=== PATIENT | female | born 1945 | race Caucasian/White ===

== ENCOUNTER 2018-06-01 06:49 | Day surgery (SDC) | payer BC, MEDICARE ==
[2018-06-01] VITALS (20 sets, daily range): BP systolic 120–146; BP diastolic 48–75
[~2018-06-01] VITALS: Ht 165.1 cm; Wt 60.3 kg
[2018-06-01] MEDS ORDERED: normal saline 1000ml 1,000 ML IV SCH (07:10)
[2018-06-01] MEDS ORDERED: ATOR40TA PO (07:33)
[2018-06-01] MEDS ORDERED: INSU100V3 SQ (07:33)
[2018-06-01] MEDS ORDERED: LANTUS SQ (07:33)
[2018-06-01] MEDS ORDERED: MIDAZolam 5mg/ml 2ml vial IV ONE (07:55)
[2018-06-01] MEDS ORDERED: fentaNYL/PF 50MCG/1 ML 2ML syringe IV ONE (07:55)
[2018-06-01 08:07] LABS: ANION GAP 9 (8-16); BLOOD UREA NITROGEN 19 MG/DL (7-18); BUN/CREATININE RATIO 17.4 (6.6-38.0); CALCIUM 9.2 MG/DL (8.5-10.1); CHLORIDE 102 MMOL/L (99-107); CREATININE 1.09 MG/DL (0.40-0.90); GLUCOSE 266 MG/DL (70-104); SODIUM 140 MMOL/L (135-145); TOTAL CARBON DIOXIDE 28.6 MMOL/L (24-32); eGFR 49 ML/MIN
[2018-06-01 08:11] LABS: PROTHROMBIN TIME 10.1 SECONDS (9.0-12.0)
[2018-06-01 08:43] LABS: BASOPHILS % (AUTO) 0.5 % (0-1); EOSINOPHILS # (AUTO) 0.1 X10'3 (0-0.9); EOSINOPHILS % (AUTO) 3.9 % (0-6); HEMATOCRIT 37.5 % (35.0-45.0); HEMOGLOBIN 12.7 g/dl (12.0-16.0); LYMPHOCYTES # (AUTO) 1.1 X10'3 (1.1-4.8); MEAN CORPUSCULAR HEMOGLOBIN 32.2 PG (27.0-31.0); MEAN CORPUSCULAR HGB CONC 33.8 % (33.0-36.5); MEAN CORPUSCULAR VOLUME 95.2 FL (78-98); MONOCYTES # (AUTO) 0.2 X10'3 (0-0.9); MONOCYTES % (AUTO) 6.7 % (2-12); NEUTROPHILS % (AUTO) 56.9 % (42-75); PLATELET COUNT 251 X10'3 (140-440); RED BLOOD COUNT 3.94 X10'6 (4.20-5.60); RED CELL DISTRIBUTION WIDTH 13.7 % (11.5-14.5); WHITE BLOOD COUNT 3.5 X10'3 (4.5-11.0)
[2018-06-01] MEDS ORDERED: HYDROcodone/acetaminophen 5mg/325mg tablet PO PRN ×2 (09:50)
== END 2018-06-01 12:55 | disposition home or self-care (01) ==
LOC: SSTAY O 06:49
PROVIDERS: ATTEND Radiology Diagnostic Radiology
DX: R74.8 Abnormal levels of other serum enzymes (principal); E78.5 Hyperlipidemia, unspecified; E10.9 Type 1 diabetes mellitus without complications; Z79.4 Long term (current) use of insulin; Z98.41 Cataract extraction status, right eye; Z98.42 Cataract extraction status, left eye; Z98.890 Other specified postprocedural states; Z79.899 Other long term (current) drug therapy
CPT/HCPCS: 36415; 47000; 76942; 80048; 82948; 85025; 85610; J2250; J3010; J7030; 99152

== ENCOUNTER 2018-12-08 02:26 | Outpatient (CLI) | payer BC ==
[~2018-12-08 02:26] MED LIST: ATOR40TA PO; INSU100V3 SQ; LANTUS SQ
== END 2018-12-08 23:59 | disposition home or self-care (01) ==
LOC: DIABETIC 02:26
PROVIDERS: ATTEND Specialist
DX: E11.65 Type 2 diabetes mellitus with hyperglycemia (principal); Z79.4 Long term (current) use of insulin; Z79.84 Long term (current) use of oral hypoglycemic drugs; Z79.899 Other long term (current) drug therapy
CPT/HCPCS: G0108

== ENCOUNTER 2019-01-13 02:16 | Outpatient (CLI) | payer BC | END 2019-01-13 23:59 | disposition home or self-care (01) | LOC: DIABETIC 02:16 | PROVIDERS: ATTEND Specialist | DX: E10.65 Type 1 diabetes mellitus with hyperglycemia (principal); Z79.4 Long term (current) use of insulin; Z79.84 Long term (current) use of oral hypoglycemic drugs; Z79.899 Other long term (current) drug therapy | CPT/HCPCS: G0108 ==

== ENCOUNTER 2019-03-22 17:58 | Emergency (ER) | payer BC ==
[~2019-03-22] VITALS: Ht 162.6 cm; Wt 60.0 kg
[2019-03-22 18:08] VITALS: BP 147/110
[2019-03-22] MEDS ORDERED: LIDOcaine/epinephrine TOPICAL 5 ML BTL TOP ONE (19:25)
[2019-03-22] MEDS ORDERED: TETanus/Pertussis (Acell)/Diphther VAC/PF (Tdap-Adult) 0.5ml syringe IMVAC ONE (19:25)
[2019-03-22] MEDS ORDERED: CEPH500C5 PO (20:14)
== END 2019-03-22 20:36 | disposition home or self-care (01) ==
LOC: ER 17:59
DX: S60.552A Superficial foreign body of left hand, initial encounter (principal); W25.XXXA Contact with sharp glass, initial encounter; Y93.89 Activity, other specified; Y92.9 Unspecified place or not applicable; Y99.9 Unspecified external cause status
CPT/HCPCS: 10120; 12001; 90471; 99284

== ENCOUNTER 2023-12-09 07:00 | Day surgery (SDC) | payer MEDICARE, OTHER ==
[2023-12-08 14:52] LABS: EOSINOPHILS # (AUTO) 0.1 X10'3 (0-0.9); EOSINOPHILS % (AUTO) 2.5 % (0-6); HEMATOCRIT 30.8 % (35.0-45.0); HEMOGLOBIN 10.5 g/dl (12.0-16.0); LYMPHOCYTES # (AUTO) 1.2 X10'3 (1.1-4.8); LYMPHOCYTES % (AUTO) 30.5 % (21-51); MEAN CORPUSCULAR HEMOGLOBIN 32.1 PG (27.0-31.0); MEAN CORPUSCULAR HGB CONC 34.2 g/dL (33.0-36.5); MEAN PLATELET VOLUME 8.2 FL (7.4-10.4); MONOCYTES # (AUTO) 0.2 X10'3 (0-0.9); NEUTROPHILS # (AUTO) 2.3 X10'3 (1.8-7.7); PLATELET COUNT 219 X10'3 (140-440); RED BLOOD COUNT 3.27 X10'6 (4.20-5.60); RED CELL DISTRIBUTION WIDTH 12.9 % (11.5-14.5); WHITE BLOOD COUNT 3.8 X10'3 (4.5-11.0)
[2023-12-08 15:01] LABS: ALBUMIN 3.5 G/DL (3.4-5.0); ANION GAP 6 (8-16); BLOOD UREA NITROGEN 10 MG/DL (7-18); BUN/CREATININE RATIO 9.5 (10.0-20.0); CHLORIDE 101 MMOL/L (99-107); CREATININE 1.05 MG/DL (0.40-0.90); GLUCOSE 395 MG/DL (70-104); POTASSIUM 4.5 MMOL/L (3.5-5.1); SODIUM 135 MMOL/L (135-145); TOTAL CARBON DIOXIDE 28.3 MMOL/L (24-32); eGFR 50 ML/MIN
[2023-12-08 15:03] LABS: APTT 25 SECONDS (22-32); PROTHROMBIN TIME 11.1 SECONDS (9.0-12.0)
[2023-12-09] VITALS (12 sets, daily range): BP systolic 139–163; BP diastolic 39–63; PULSE 52–73; RESP 14–16; TEMP 98.2; O2SAT 96–100
[~2023-12-09] VITALS: Ht 162.6 cm; Wt 49.7 kg
[2023-12-09] MEDS: diphenhydrAMINE 25mg capsule PO PRN (08:49)
[2023-12-09] MEDS: LORazepam 0.5 MG tablet PO PRN (08:49)
[2023-12-09] MEDS: normal saline 1,000 ML IV SCH (08:50)
[2023-12-09] MEDS ORDERED: LIDOcaine 1% (10mg/ml) 2ml vial ONE ×2 (10:08→10:17)
[2023-12-09] MEDS ORDERED: verapamil 2.5 mg/ml inj IV ONE (10:08)
[2023-12-09] MEDS ORDERED: fentaNYL/PF 50MCG/1 ML 2ML syringe ONE (10:08)
[2023-12-09] MEDS ORDERED: iohexol 350 MG/ML 50ML vial IV ONE (10:09)
[2023-12-09] MEDS ORDERED: nitroGLYCERIN 500mcg/5mL D5W 5 ML IV ONE (10:09)
[2023-12-09] MEDS ORDERED: heparin 1,000unit/ml 10ml vial 10 ML ONE (10:09)
[2023-12-09] MEDS ORDERED: midazolam 1 mg/ML 2ml injection ONE (10:09)
[2023-12-09] MEDS ORDERED: iohexol 350MG/ML 100ml bottle IV ONE ×2 (10:09→11:21)
[2023-12-09] MEDS ORDERED: heparin 25,000 UNIT/250ml bag 250 ML IV ONE (11:21)
[2023-12-09] MEDS ORDERED: heparin 1,000 UNITS/NS 500ml 500 ML ONE (11:30)
[2023-12-09] MEDS ORDERED: clopidogrel 300mg tablet ONE (11:52)
[2023-12-09] MEDS ORDERED: aspirin 81mg tab.chew ONE (11:53)
[2023-12-09] MEDS ORDERED: CLOP75TA34 PO (12:46)
[2023-12-09] MEDS ORDERED: ASPI-611 PO (12:46)
[2023-12-09 13:05] LABS: ISTAT HGB ART 9.5 g/dl (12.0-16.0); ISTAT Hct ART 28 %PCV (35-45); ISTAT O2 SATURATION ARTERIAL 93 % (95-98); ISTAT SOURCE ART
[2023-12-10] MEDS ORDERED: aspirin 81mg, enteric-coated 1 TAB TABLET.DR PO SCH (08:00)
[2023-12-10] MEDS ORDERED: clopidogrel 75mg tablet PO SCH (08:00)
== END 2023-12-09 18:25 | disposition home or self-care (01) ==
LOC: SSTAY O 07:00
PROVIDERS: ATTEND Internal Medicine Cardiovascular Disease
DX: I35.0 Nonrheumatic aortic (valve) stenosis (principal); I25.10 Atherosclerotic heart disease of native coronary artery without angina pectoris; E10.9 Type 1 diabetes mellitus without complications; E78.5 Hyperlipidemia, unspecified; Z79.899 Other long term (current) drug therapy; Z96.642 Presence of left artificial hip joint; Z83.3 Family history of diabetes mellitus; Z82.49 Family history of ischemic heart disease and other diseases of the circulatory system; Z80.9 Family history of malignant neoplasm, unspecified
CPT/HCPCS: 36415; 76937; 80048; 82803; 82948; 85014; 85025; 85347; 85610; 85730; 93005; 93460; 99152; 99153; A6258; A6402; C1725; C1751; C1769; C1874; C1894; C9600; J1644; J2001; J2250; J3010; J3490; J7030; Q0163; Q9967; Z7610

== ENCOUNTER 2024-04-05 22:10 | Inpatient (IN) | payer MEDICARE, OTHER ==
[~2024-04-05] VITALS: Ht 160 cm; Wt 51.4 kg
[~2024-04-05 22:10] MED LIST changes: +ASPI-611 PO; +CLOP75TA34 PO
[2024-04-05 22:31] LABS: BASOPHILS # (AUTO) 0.1 X10'3 (0-0.2); BASOPHILS % (AUTO) 0.7 % (0-1); EOSINOPHILS # (AUTO) 0.1 X10'3 (0-0.9); EOSINOPHILS % (AUTO) 1.3 % (0-6); HEMATOCRIT 31.6 % (35.0-45.0); HEMOGLOBIN 10.2 g/dl (12.0-16.0); LYMPHOCYTES # (AUTO) 1.1 X10'3 (1.1-4.8); LYMPHOCYTES % (AUTO) 12.6 % (21-51); MEAN CORPUSCULAR HEMOGLOBIN 32.2 PG (27.0-31.0); MEAN CORPUSCULAR HGB CONC 32.3 g/dL (33.0-36.5); MEAN CORPUSCULAR VOLUME 99.8 FL (78-98); MEAN PLATELET VOLUME 9.7 FL (7.4-10.4); MONOCYTES # (AUTO) 0.3 X10'3 (0-0.9); MONOCYTES % (AUTO) 3.7 % (2-12); NEUTROPHILS # (AUTO) 7.2 X10'3 (1.8-7.7); NEUTROPHILS % (AUTO) 81.7 % (42-75); PLATELET COUNT 76 X10'3 (140-440); RED BLOOD COUNT 3.16 X10'6 (4.20-5.60); RED CELL DISTRIBUTION WIDTH 13.7 % (11.5-14.5); WHITE BLOOD COUNT 8.8 X10'3 (4.5-11.0)
[2024-04-05] MEDS: DOPamine 400mg/D5W 250ml 250 ML IV SCH (22:39)
[2024-04-05 23:08] LABS: ALBUMIN 3.4 G/DL (3.4-5.0); ALBUMIN/GLOBULIN RATIO 1.3 (1.1-1.5); ALKALINE PHOSPHATASE 398 IU/L (46-116); ANION GAP 27 (8-16); BILIRUBIN,TOTAL 1.3 MG/DL (0.1-1.0); BLOOD UREA NITROGEN 46 MG/DL (7-18); BUN/CREATININE RATIO 12.5 (10.0-20.0); CALCIUM 9.7 MG/DL (8.5-10.1); CHLORIDE 90 MMOL/L (99-107); CREATININE 3.68 MG/DL (0.40-0.90); MAGNESIUM 2.7 MG/DL (1.5-2.4); PRO BRAIN NATRIURETIC PEPTIDE 11308 PG/ML (0-450); SODIUM 128 MMOL/L (135-145); THYROID STIMULATING HORMONE 4.24 ulU/ml (0.34-4.50); TOTAL PROTEIN 6.1 G/DL (6.4-8.2); eCRCL 10 ML/MIN; eGFR 12 ML/MIN
[2024-04-05] MEDS: normal saline 1000ml 1,000 ML IV STA (23:12)
[2024-04-05 23:25] LABS: ALANINE AMINOTRANSFERASE 3154 U/L (12-78); ASPARTATE AMINO TRANSFERASE 4295 U/L (10-37)
[2024-04-05 23:29] LABS: GLUCOSE 592 MG/DL (70-104); POTASSIUM 6.9 MMOL/L (3.5-5.1); TOTAL CARBON DIOXIDE 11.2 MMOL/L (24-32)
[2024-04-05 23:44] LABS: APTT 27 SECONDS (22-32); INR 1.8 INR; PROTHROMBIN TIME 18.1 SECONDS (9.0-12.0)
[2024-04-05] MEDS ORDERED: SODIUM BICARB IV ONE (23:50)
[2024-04-05] MEDS ORDERED: NORMAL SALINE IV ONE (23:50)
[2024-04-05] MEDS ORDERED: PED IV ONE (23:50)
[2024-04-05] MEDS ORDERED: calcium gluconate inj. 1 GM in normal saline 100ml IV soln 40 ML IV ONE (23:50)
[2024-04-06] VITALS (58 sets, daily range): BP systolic 92–144; BP diastolic 35–67; PULSE 69–100; RESP 10–24; O2SAT 85–100
[2024-04-06 00:27] LABS: ABG BASE EXCESS -2.3 mmol/L (-2.0-3.0); ABG HCO3 19.6 mmol/L (21.0-28.0); ABG PCO2 (T) 24.2 mmHg (32.0-45.0); ABG PH (T) 7.526 (7.350-7.450); ABG PO2 (T) 147.5 mmHg (83.0-108.0); ALLEN'S TEST Modified; FCOHb 0.2 % (0.5-1.5); FMetHb 0.3 % (0.0-1.5); FO2Hb 97.5 % (94.0-98.0); TOTAL HEMOGLOBIN 9.1 G/dl (12.0-16.0)
[2024-04-06] MEDS: albuterol 2.5 MG/3 ML nebule CONTNEB PRN (00:30)
[2024-04-06] MEDS: insulin regular, human 10 units/0.1 ml syringe IV ONE (00:37)
[2024-04-06] MEDS: Insulin Reg/NS 100units/100mL 100 ML IV SCH ×3 (00:38→09:41)
[2024-04-06] MEDS: sodium bicarbonate (8.4%) 1 mEq/ml syringe IV ONE (00:51)
[2024-04-06] MEDS: sodium bicarbonate (8.4%) 1 mEq/ml syringe IV STA (00:59)
[2024-04-06 01:00] LABS: BASOPHILS % (AUTO) 0.3 % (0-1); EOSINOPHILS # (AUTO) 0.1 X10'3 (0-0.9); EOSINOPHILS % (AUTO) 0.8 % (0-6); LYMPHOCYTES # (AUTO) 0.8 X10'3 (1.1-4.8); MEAN CORPUSCULAR HEMOGLOBIN 32.4 PG (27.0-31.0); MEAN CORPUSCULAR HGB CONC 33.4 g/dL (33.0-36.5); MEAN CORPUSCULAR VOLUME 97.1 FL (78-98); MEAN PLATELET VOLUME 9.3 FL (7.4-10.4); MONOCYTES % (AUTO) 0.5 % (2-12); NEUTROPHILS % (AUTO) 86.4 % (42-75); PLATELET COUNT 61 X10'3 (140-440); RED BLOOD COUNT 2.47 X10'6 (4.20-5.60); RED CELL DISTRIBUTION WIDTH 13.1 % (11.5-14.5); WHITE BLOOD COUNT 6.9 X10'3 (4.5-11.0)
[2024-04-06] MEDS: normal saline 1000ml 1,000 ML IV STA (01:00)
[2024-04-06] MEDS: normal saline 1000ml 1,000 ML IV ONE (01:00)
[2024-04-06] MEDS: CALCIUM GLUC 1gm/50ml NACL,iso 50 ML IV ONE (01:00)
[2024-04-06] MEDS: atropine 0.1mg/ml 10ml syringe IV STA ×2 (01:03→01:22)
[2024-04-06] MEDS: atropine 1 MG/1 ML vial IV STA (01:03)
[2024-04-06 01:19] LABS: ALBUMIN 2.6 G/DL (3.4-5.0); ALBUMIN/GLOBULIN RATIO 1.2 (1.1-1.5); ALKALINE PHOSPHATASE 310 IU/L (46-116); ANION GAP 20 (8-16); BILIRUBIN,TOTAL 1.4 MG/DL (0.1-1.0); BLOOD UREA NITROGEN 44 MG/DL (7-18); BUN/CREATININE RATIO 13.5 (10.0-20.0); CHLORIDE 98 MMOL/L (99-107); CREATININE 3.26 MG/DL (0.40-0.90); POTASSIUM 5.3 MMOL/L (3.5-5.1); SODIUM 136 MMOL/L (135-145); TOTAL CARBON DIOXIDE 17.8 MMOL/L (24-32); TOTAL PROTEIN 4.7 G/DL (6.4-8.2); eCRCL 11 ML/MIN; eGFR 14 ML/MIN
[2024-04-06 01:32] LABS: BILIRUBIN,URINE NEGATIVE (Neg); CLARITY,URINE SLIGHTLY CLOUDY (Clear); COLOR,URINE YELLOW (Yellow); GLUCOSE, URINE >=1000 mg/dl (Neg); KETONES,URINE 15 mg/dl (Neg); LEUKOCYTE ESTERASE ,URINE NEGATIVE (Neg); NITRITES, URINE NEGATIVE (Neg); OCCULT BLOOD,URINE LARGE (Neg); PH,URINE 5.5 (4.8-8.0); PROTEIN,URINE 100 mg/dl (Neg); UROBILINOGEN,URINE 0.2 E.U/dL (0.2-1.0)
[2024-04-06 01:38] LABS: ALANINE AMINOTRANSFERASE 2733 U/L (12-78)
[2024-04-06 01:39] LABS: BACTERIA,URINE 2+ /HPF (Neg); SQUAMOUS EPITHELIAL CELL,UR FEW /LPF (FEW); UA COLLECTION TYPE FOLEY CATH
[2024-04-06 01:40] LABS: WBC,URINE 0-4 /HPF (0-4)
[2024-04-06 01:48] LABS: ASPARTATE AMINO TRANSFERASE 3878 U/L (10-37)
[2024-04-06 01:50] LABS: GLUCOSE 519 MG/DL (70-104)
[2024-04-06] MEDS ORDERED: potassium CL 20mEq in D5-1/2NS 1,000 ML IV PRN (03:30)
[2024-04-06] MEDS ORDERED: mag hydrox/Alum hydrox/simeth 30ml oral suspension PO PRN (03:30)
[2024-04-06] MEDS ORDERED: ondansetron/PF 4mg/2ml inj IV PRN (03:30)
[2024-04-06] MEDS ORDERED: Neutra Phos packet PO PRN (03:30)
[2024-04-06] MEDS ORDERED: sodium phosphate inj. 15 MMOL in dextrose 5%-water 250 ML IV PRN (03:30)
[2024-04-06] MEDS ORDERED: dextrose 50%-water 50ml dispensing syringe IV PRN (03:30)
[2024-04-06] MEDS ORDERED: potassium Cl 20 mEq SR tablet PO PRN ×4 (03:30)
[2024-04-06] MEDS ORDERED: normal saline 1000ml 1,000 ML IV SCH (03:30)
[2024-04-06] MEDS ORDERED: magnesium Cl slow-release 64mg tablet PO PRN (03:30)
[2024-04-06] MEDS ORDERED: magnesium hydroxide 30ml (MOM) UD suspension PO PRN (03:30)
[2024-04-06] MEDS ORDERED: acetaminophen 325mg tablet PO PRN (03:30)
[2024-04-06] MEDS ORDERED: magnesium sulf-water 2g/50mL 50 ML IV PRN (03:30)
[2024-04-06] MEDS ORDERED: sodium bicarbonate (8.4%) inj. 100 MEQ in dextrose 5% water 500ml 500 ML IV PRN (03:30)
[2024-04-06] MEDS ORDERED: sodium phosphate inj. 30 MMOL in dextrose 5%-water 250 ML IV PRN (03:30)
[2024-04-06] MEDS ORDERED: sodium bicarbonate (8.4%) inj. 50 MEQ in dextrose 5% water 500ml 250 ML IV PRN (03:30)
[2024-04-06] MEDS ORDERED: potassium Cl 40MEQ/1/2NS 520ml 520 ML IV PRN ×2 (03:30)
[2024-04-06] MEDS ORDERED: magnesium sulf-water 4G/100mL 100 ML IV PRN (03:30)
[2024-04-06 03:34] LABS: ALBUMIN 3.1 G/DL (3.4-5.0); ALBUMIN/GLOBULIN RATIO 1.3 (1.1-1.5); ALKALINE PHOSPHATASE 351 IU/L (46-116); ANION GAP 16 (8-16); BILIRUBIN,TOTAL 1.1 MG/DL (0.1-1.0); BLOOD UREA NITROGEN 46 MG/DL (7-18); BUN/CREATININE RATIO 14.6 (10.0-20.0); CALCIUM 9.7 MG/DL (8.5-10.1); CHLORIDE 98 MMOL/L (99-107); CREATININE 3.14 MG/DL (0.40-0.90); SODIUM 136 MMOL/L (135-145); TOTAL CARBON DIOXIDE 22.5 MMOL/L (24-32); TOTAL PROTEIN 5.5 G/DL (6.4-8.2); eCRCL 12 ML/MIN; eGFR 14 ML/MIN
[2024-04-06] MEDS: normal saline 1000ml 1,000 ML IV SCH ×2 (03:55→13:29)
[2024-04-06 04:01] LABS: MAGNESIUM 2.2 MG/DL (1.5-2.4); PHOSPHORUS 5.5 MG/DL (2.3-4.5)
[2024-04-06 04:02] LABS: ALANINE AMINOTRANSFERASE 3221 U/L (12-78); ASPARTATE AMINO TRANSFERASE 5029 U/L (10-37)
[2024-04-06] MEDS: PERFLUTREN PROTEIN-A MICROSPHR (Optison) 0.22 MG/ML 3ML VIAL IV ONE (05:00)
[2024-04-06] MEDS ORDERED: K and/or MAG REPLACEMENT MC SCH (08:00)
[2024-04-06] MEDS: docusate sod 100mg capsule PO SCH (08:00)
[2024-04-06] MEDS: K and/or MAG REPLACEMENT MC SCH (08:00)
[2024-04-06 08:36] LABS: ALBUMIN 2.8 G/DL (3.4-5.0); ANION GAP 10 (8-16); BLOOD UREA NITROGEN 48 MG/DL (7-18); BUN/CREATININE RATIO 19.3 (10.0-20.0); CALCIUM 8.8 MG/DL (8.5-10.1); CHLORIDE 101 MMOL/L (99-107); CREATININE 2.49 MG/DL (0.40-0.90); GLUCOSE 254 MG/DL (70-104); LIPASE 51 U/L (16-77); PHOSPHORUS 3.6 MG/DL (2.3-4.5); POTASSIUM 4.4 MMOL/L (3.5-5.1); SODIUM 138 MMOL/L (135-145); TOTAL CARBON DIOXIDE 27.2 MMOL/L (24-32); eCRCL 15 ML/MIN; eGFR 19 ML/MIN
[2024-04-06] MEDS ORDERED: INSULIN LISPRO 100 UNIT/ML INSULN.PEN MULTI-DOSE SQ SCH (09:00)
[2024-04-06] MEDS: potassium CL 20mEq in D5-1/2NS 1,000 ML IV PRN (09:41)
[2024-04-06] MEDS: ringers solution, lactated 500ml IV solution IV ONE (10:03)
[2024-04-06] MEDS ORDERED: piperacillin/tazobactam inj. 3.375 GM in NS 50ml IV SCH ×2 (11:21→11:40)
[2024-04-06 11:41] LABS: BASOPHILS % (AUTO) 0.4 % (0-1); EOSINOPHILS % (AUTO) 0.3 % (0-6); HEMATOCRIT 23.5 % (35.0-45.0); HEMOGLOBIN 7.9 g/dl (12.0-16.0); LYMPHOCYTES # (AUTO) 0.7 X10'3 (1.1-4.8); LYMPHOCYTES % (AUTO) 9.9 % (21-51); MEAN CORPUSCULAR HGB CONC 33.7 g/dL (33.0-36.5); MEAN CORPUSCULAR VOLUME 94.9 FL (78-98); MEAN PLATELET VOLUME 9.9 FL (7.4-10.4); MONOCYTES # (AUTO) 0.3 X10'3 (0-0.9); MONOCYTES % (AUTO) 4.2 % (2-12); NEUTROPHILS # (AUTO) 5.9 X10'3 (1.8-7.7); NEUTROPHILS % (AUTO) 85.2 % (42-75); PLATELET COUNT 83 X10'3 (140-440); RED BLOOD COUNT 2.47 X10'6 (4.20-5.60); RED CELL DISTRIBUTION WIDTH 13.4 % (11.5-14.5)
[2024-04-06] MEDS ORDERED: VANCOMYCIN 1GM 200ML H20 (PEG) 200 ML IV PRN (11:55)
[2024-04-06 12:16] LABS: TOTAL CELLS COUNTED 100
[2024-04-06 12:17] LABS: ANISOCYTOSIS FEW; BURR CELLS FEW; ELLIPTOCYTES FEW; HYPOCHROMASIA 1+; PLATELET ESTIMATE DECREASED
[2024-04-06] MEDS: piperacillin/tazobactam inj. 3.375 GM in NS 50ml IV SCH (12:51)
[2024-04-06] MEDS: VANCOMYCIN 1GM 200ML H20 (PEG) 200 ML IV ONE (12:51)
[2024-04-06] MEDS: pantoprazole 40 MG vial IV SCH (12:53)
[2024-04-06 13:20] LABS: HEMOGLOBIN A1C > 12.0 % (4.5-6.2)
[2024-04-06] MEDS: ringers solution, lacted 1,000 ML IV ONE (14:52)
[2024-04-06] MEDS: dextrose 50%-water 50ml dispensing syringe IV PRN (15:20)
[2024-04-06] MEDS: INSULIN LISPRO 100 UNIT/ML INSULN.PEN MULTI-DOSE SQ SCH (15:50)
[2024-04-06] MEDS: insulin glargine (Lantus) pen - multi-dose SQ SCH (21:01)
[2024-04-07] VITALS (17 sets, daily range): BP systolic 103–142; BP diastolic 49–71; PULSE 67–79; RESP 13–21; TEMP 97.5–97.6; O2SAT 90–100
[2024-04-07 02:48] LABS: BASOPHILS % (AUTO) 0.3 % (0-1); EOSINOPHILS % (AUTO) 0.5 % (0-6); HEMATOCRIT 23.2 % (35.0-45.0); HEMOGLOBIN 7.9 g/dl (12.0-16.0); LYMPHOCYTES # (AUTO) 0.6 X10'3 (1.1-4.8); LYMPHOCYTES % (AUTO) 10.7 % (21-51); MEAN CORPUSCULAR HEMOGLOBIN 32.4 PG (27.0-31.0); MEAN CORPUSCULAR VOLUME 95.3 FL (78-98); MEAN PLATELET VOLUME 10.3 FL (7.4-10.4); MONOCYTES # (AUTO) 0.2 X10'3 (0-0.9); MONOCYTES % (AUTO) 3.8 % (2-12); NEUTROPHILS # (AUTO) 4.4 X10'3 (1.8-7.7); NEUTROPHILS % (AUTO) 84.7 % (42-75); PLATELET COUNT 83 X10'3 (140-440); RED BLOOD COUNT 2.44 X10'6 (4.20-5.60); RED CELL DISTRIBUTION WIDTH 13.5 % (11.5-14.5); WHITE BLOOD COUNT 5.2 X10'3 (4.5-11.0)
[2024-04-07] MEDS: VANCOMYCIN LEVEL IV SCH (03:00)
[2024-04-07 03:14] LABS: ALANINE AMINOTRANSFERASE 3687 U/L (12-78); ALBUMIN 2.4 G/DL (3.4-5.0); ALBUMIN/GLOBULIN RATIO 1.2 (1.1-1.5); ALKALINE PHOSPHATASE 250 IU/L (46-116); ANION GAP 6 (8-16); ASPARTATE AMINO TRANSFERASE 1832 U/L (10-37); BILIRUBIN,TOTAL 0.8 MG/DL (0.1-1.0); BLOOD UREA NITROGEN 46 MG/DL (7-18); BUN/CREATININE RATIO 23.4 (10.0-20.0); CALCIUM 7.9 MG/DL (8.5-10.1); CHLORIDE 107 MMOL/L (99-107); CREATININE 1.97 MG/DL (0.40-0.90); GLUCOSE 166 MG/DL (70-104); MAGNESIUM 1.9 MG/DL (1.5-2.4); PHOSPHORUS 3.2 MG/DL (2.3-4.5); POTASSIUM 5.3 MMOL/L (3.5-5.1); SODIUM 137 MMOL/L (135-145); TOTAL CARBON DIOXIDE 23.8 MMOL/L (24-32); TOTAL PROTEIN 4.4 G/DL (6.4-8.2); VANCOMYCIN,RANDOM 14.8 ug/mL (20.0-30.0); eCRCL 18 ML/MIN; eGFR 24 ML/MIN
[2024-04-07] MEDS: dextrose 50%-water 50ml dispensing syringe IV ONE (07:20)
[2024-04-07] MEDS: insulin regular, human 10 units/0.1 ml syringe IV ONE (07:20)
[2024-04-07] MEDS: sodium polystyrene sulfonate 15gm/60ml oral suspension PO ONE ×2 (07:20→08:43)
[2024-04-07] MEDS: VANCOMYCIN 1GM 200ML H20 (PEG) 200 ML IV ONE (11:42)
[2024-04-07 12:23] LABS: FERRITIN 23354 NG/ML (8-252)
[2024-04-07 13:07] LABS: GLUCOSE 445 MG/DL (70-104)
[2024-04-07 15:14] LABS: POTASSIUM 4.9 MMOL/L (3.5-5.1)
[2024-04-07] MEDS: HEPARIN DRIP-CARDIAC**PHARMACIST-TO-DOSE IV ONE (16:05)
[2024-04-07] MEDS: clopidogrel 75mg tablet PO SCH (16:53)
[2024-04-07] MEDS: aspirin 81mg, enteric-coated 1 TAB TABLET.DR PO SCH (16:54)
[2024-04-07] MEDS: heparin 25,000 UNIT/250ml bag 250 ML IV PRN (16:59)
[2024-04-07 17:02] LABS: HEMATOCRIT 24.5 % (35.0-45.0); HEMOGLOBIN 8.3 g/dl (12.0-16.0); MEAN PLATELET VOLUME 10.1 FL (7.4-10.4); MONOCYTES # (AUTO) 0.2 X10'3 (0-0.9); RED BLOOD COUNT 2.54 X10'6 (4.20-5.60)
[2024-04-07 17:04] LABS: BASOPHILS % (AUTO) 0.3 % (0-1); EOSINOPHILS % (AUTO) 0.5 % (0-6); LYMPHOCYTES # (AUTO) 0.5 X10'3 (1.1-4.8); LYMPHOCYTES % (AUTO) 13.1 % (21-51); MEAN CORPUSCULAR HEMOGLOBIN 32.6 PG (27.0-31.0); MEAN CORPUSCULAR HGB CONC 33.8 g/dL (33.0-36.5); MEAN CORPUSCULAR VOLUME 96.3 FL (78-98); MONOCYTES % (AUTO) 4.8 % (2-12); NEUTROPHILS # (AUTO) 3.2 X10'3 (1.8-7.7); NEUTROPHILS % (AUTO) 81.3 % (42-75); PLATELET COUNT 76 X10'3 (140-440); RED CELL DISTRIBUTION WIDTH 13.6 % (11.5-14.5)
[2024-04-07] MEDS: heparin 10,000 units/1 ML INJ IV ONE (17:06)
[2024-04-07 17:08] LABS: APTT 25 SECONDS (22-32); INR 1.4 INR; PROTHROMBIN TIME 14.4 SECONDS (9.0-12.0)
[2024-04-07] MEDS: MESSAGE TO NURSING IV ONE (17:20)
[2024-04-07] MEDS ORDERED: heparin 25,000 UNIT/250ml bag 250 ML IV PRN (23:45)
[2024-04-07] MEDS: heparin 10,000 units/1 ML INJ IV PRN (23:50)
[2024-04-08] VITALS (8 sets, daily range): BP systolic 97–132; BP diastolic 48–54; PULSE 71–77; RESP 16–24; TEMP 97.2–98.2; O2SAT 94–98
[2024-04-08] MEDS ORDERED: HALLS - SOOTHE MENTHOL 1.8 MG cough drop LOZENGE MM PRN (00:55)
[2024-04-08] MEDS: MESSAGE TO NURSING IV ONE (01:33)
[2024-04-08 07:00] LABS: BASOPHILS % (AUTO) 0.7 % (0-1); EOSINOPHILS # (AUTO) 0.1 X10'3 (0-0.9); EOSINOPHILS % (AUTO) 1.3 % (0-6); HEMOGLOBIN 7.5 g/dl (12.0-16.0); LYMPHOCYTES # (AUTO) 0.9 X10'3 (1.1-4.8); LYMPHOCYTES % (AUTO) 20.1 % (21-51); MEAN CORPUSCULAR HEMOGLOBIN 32.5 PG (27.0-31.0); MEAN CORPUSCULAR HGB CONC 34.2 g/dL (33.0-36.5); MEAN CORPUSCULAR VOLUME 95.2 FL (78-98); MONOCYTES # (AUTO) 0.2 X10'3 (0-0.9); MONOCYTES % (AUTO) 4.8 % (2-12); NEUTROPHILS # (AUTO) 3.4 X10'3 (1.8-7.7); NEUTROPHILS % (AUTO) 73.1 % (42-75); PLATELET COUNT 79 X10'3 (140-440); RED CELL DISTRIBUTION WIDTH 13.5 % (11.5-14.5); WHITE BLOOD COUNT 4.6 X10'3 (4.5-11.0)
[2024-04-08 07:07] LABS: HEMATOCRIT 21.9 % (35.0-45.0)
[2024-04-08] MEDS ORDERED: glucagon, human recombinant 1mg kit SUBCUT PRN (07:15)
[2024-04-08] MEDS ORDERED: dextrose 50%-water 50ml dispensing syringe IV PRN (07:15)
[2024-04-08] MEDS ORDERED: DEXTROSE 15 GM of carb/4 tabs (each vial/BOTTLE has 4 tablets) PO PRN ×2 (07:15)
[2024-04-08 07:22] LABS: ALBUMIN 2.2 G/DL (3.4-5.0); ALBUMIN/GLOBULIN RATIO 0.9 (1.1-1.5); ALKALINE PHOSPHATASE 252 IU/L (46-116); ANION GAP 8 (8-16); BILIRUBIN,TOTAL 0.6 MG/DL (0.1-1.0); BLOOD UREA NITROGEN 51 MG/DL (7-18); BUN/CREATININE RATIO 25.1 (10.0-20.0); CALCIUM 7.9 MG/DL (8.5-10.1); CHLORIDE 110 MMOL/L (99-107); CREATININE 2.03 MG/DL (0.40-0.90); GLUCOSE 54 MG/DL (70-104); MAGNESIUM 1.9 MG/DL (1.5-2.4); POTASSIUM 4.2 MMOL/L (3.5-5.1); SODIUM 140 MMOL/L (135-145); TOTAL CARBON DIOXIDE 21.6 MMOL/L (24-32); TOTAL PROTEIN 4.6 G/DL (6.4-8.2); VANCOMYCIN,RANDOM 19.5 ug/mL (20.0-30.0); eCRCL 18 ML/MIN; eGFR 24 ML/MIN
[2024-04-08 07:32] LABS: ALANINE AMINOTRANSFERASE 2956 U/L (12-78); ASPARTATE AMINO TRANSFERASE 1780 U/L (10-37)
[2024-04-08] MEDS: dextrose 50%-water 50ml dispensing syringe IV PRN (07:35)
[2024-04-08 07:39] LABS: PLATELET ESTIMATE DECREASED
[2024-04-08 07:40] LABS: ACANTHOCYTES FEW; BURR CELLS 1+; ELLIPTOCYTES FEW; POLYCHROMASIA FEW
[2024-04-08] MEDS ORDERED: ASPIRIN PO SCH (08:00)
[2024-04-08] MEDS ORDERED: clopidogrel 75mg tablet PO SCH (08:00)
[2024-04-08] MEDS: atorvastatin 20mg tablet PO SCH (08:57)
[2024-04-08] MEDS: normal saline 1000ml 1,000 ML IV SCH (13:15)
[2024-04-09] VITALS (12 sets, daily range): BP systolic 103–138; BP diastolic 39–61; PULSE 44–75; RESP 16–22; TEMP 97–99; O2SAT 94–97
[2024-04-09 05:14] LABS: HBSAG SCREEN Negative (Negative); HEPATITIS C VIRUS ANTIBODY Non Reactive (Non Reactive)
[2024-04-09 07:05] LABS: BASOPHILS % (AUTO) 0.3 % (0-1); EOSINOPHILS # (AUTO) 0.1 X10'3 (0-0.9); EOSINOPHILS % (AUTO) 3.2 % (0-6); HEMOGLOBIN 7.4 g/dl (12.0-16.0); MEAN PLATELET VOLUME 10.6 FL (7.4-10.4); MONOCYTES # (AUTO) 0.3 X10'3 (0-0.9); PLATELET COUNT 87 X10'3 (140-440); RED CELL DISTRIBUTION WIDTH 13.3 % (11.5-14.5); WHITE BLOOD COUNT 4.3 X10'3 (4.5-11.0)
[2024-04-09 07:07] LABS: LYMPHOCYTES # (AUTO) 0.7 X10'3 (1.1-4.8); LYMPHOCYTES % (AUTO) 17.3 % (21-51); MEAN CORPUSCULAR HEMOGLOBIN 32.4 PG (27.0-31.0); MEAN CORPUSCULAR VOLUME 95.3 FL (78-98); MONOCYTES % (AUTO) 7.4 % (2-12); NEUTROPHILS # (AUTO) 3.1 X10'3 (1.8-7.7); NEUTROPHILS % (AUTO) 71.8 % (42-75)
[2024-04-09 07:15] LABS: HEMATOCRIT 21.9 % (35.0-45.0)
[2024-04-09 07:29] LABS: ALBUMIN/GLOBULIN RATIO 0.8 (1.1-1.5); ALKALINE PHOSPHATASE 263 IU/L (46-116); ANION GAP 6 (8-16); ASPARTATE AMINO TRANSFERASE 587 U/L (10-37); BILIRUBIN,TOTAL 0.7 MG/DL (0.1-1.0); BLOOD UREA NITROGEN 55 MG/DL (7-18); BUN/CREATININE RATIO 26.3 (10.0-20.0); CALCIUM 7.5 MG/DL (8.5-10.1); CHLORIDE 109 MMOL/L (99-107); CREATININE 2.09 MG/DL (0.40-0.90); GLUCOSE 136 MG/DL (70-104); MAGNESIUM 1.7 MG/DL (1.5-2.4); PHOSPHORUS 2.8 MG/DL (2.3-4.5); POTASSIUM 4.2 MMOL/L (3.5-5.1); SODIUM 139 MMOL/L (135-145); TOTAL CARBON DIOXIDE 23.8 MMOL/L (24-32); TOTAL PROTEIN 4.5 G/DL (6.4-8.2); VANCOMYCIN,RANDOM 10.5 ug/mL (20.0-30.0); eCRCL 17 ML/MIN; eGFR 23 ML/MIN
[2024-04-09 07:34] LABS: ALANINE AMINOTRANSFERASE 1920 U/L (12-78)
[2024-04-09 07:43] LABS: PLATELET ESTIMATE DECREASED
[2024-04-09 07:44] LABS: ACANTHOCYTES FEW
[2024-04-09 15:11] LABS: % IRON SATURATION 19 % (11-46); IRON 35 UG/DL (49-151); TOTAL IRON BINDING CAPACITY 182 UG/DL (259-388)
[2024-04-09 15:35] LABS: FERRITIN 2243 NG/ML (8-252)
[2024-04-09] MEDS: INSULIN LISPRO 100 UNIT/ML INSULN.PEN MULTI-DOSE SQ ONE (17:30)
[2024-04-09 23:48] LABS: ANION GAP 8 (8-16); BLOOD UREA NITROGEN 61 MG/DL (7-18); BUN/CREATININE RATIO 28.1 (10.0-20.0); CALCIUM 7.3 MG/DL (8.5-10.1); CHLORIDE 108 MMOL/L (99-107); CREATININE 2.17 MG/DL (0.40-0.90); GLUCOSE 238 MG/DL (70-104); POTASSIUM 4.5 MMOL/L (3.5-5.1); SODIUM 137 MMOL/L (135-145); TOTAL CARBON DIOXIDE 20.7 MMOL/L (24-32); eCRCL 17 ML/MIN; eGFR 22 ML/MIN
[2024-04-09 23:51] LABS: BASOPHILS % (AUTO) 0.6 % (0-1); EOSINOPHILS # (AUTO) 0.2 X10'3 (0-0.9); EOSINOPHILS % (AUTO) 3.2 % (0-6); HEMOGLOBIN 9.3 g/dl (12.0-16.0); LYMPHOCYTES # (AUTO) 0.9 X10'3 (1.1-4.8); LYMPHOCYTES % (AUTO) 18.3 % (21-51); MEAN CORPUSCULAR HEMOGLOBIN 32.5 PG (27.0-31.0); MEAN CORPUSCULAR HGB CONC 34.3 g/dL (33.0-36.5); MEAN CORPUSCULAR VOLUME 94.6 FL (78-98); MEAN PLATELET VOLUME 10.4 FL (7.4-10.4); MONOCYTES # (AUTO) 0.6 X10'3 (0-0.9); MONOCYTES % (AUTO) 11.4 % (2-12); NEUTROPHILS # (AUTO) 3.3 X10'3 (1.8-7.7); NEUTROPHILS % (AUTO) 66.5 % (42-75); PLATELET COUNT 88 X10'3 (140-440); RED BLOOD COUNT 2.86 X10'6 (4.20-5.60); RED CELL DISTRIBUTION WIDTH 13.6 % (11.5-14.5); WHITE BLOOD COUNT 4.9 X10'3 (4.5-11.0)
[2024-04-10] VITALS (16 sets, daily range): BP systolic 124–174; BP diastolic 28–70; PULSE 61–130; RESP 15–20; TEMP 97.3–98; O2SAT 96–100
[2024-04-10 06:07] LABS: BASOPHILS % (AUTO) 0.7 % (0-1); EOSINOPHILS # (AUTO) 0.2 X10'3 (0-0.9); HEMATOCRIT 26.5 % (35.0-45.0); LYMPHOCYTES % (AUTO) 19.9 % (21-51); MEAN CORPUSCULAR HEMOGLOBIN 32.1 PG (27.0-31.0); MEAN CORPUSCULAR HGB CONC 34.1 g/dL (33.0-36.5); MEAN CORPUSCULAR VOLUME 94.2 FL (78-98); MEAN PLATELET VOLUME 10.2 FL (7.4-10.4); MONOCYTES # (AUTO) 0.6 X10'3 (0-0.9); MONOCYTES % (AUTO) 11.3 % (2-12); NEUTROPHILS # (AUTO) 3.2 X10'3 (1.8-7.7); NEUTROPHILS % (AUTO) 64.1 % (42-75); PLATELET COUNT 89 X10'3 (140-440); RED BLOOD COUNT 2.81 X10'6 (4.20-5.60); RED CELL DISTRIBUTION WIDTH 13.9 % (11.5-14.5)
[2024-04-10 06:36] LABS: ALBUMIN 1.9 G/DL (3.4-5.0); ALBUMIN/GLOBULIN RATIO 0.8 (1.1-1.5); ALKALINE PHOSPHATASE 255 IU/L (46-116); ANION GAP 7 (8-16); ASPARTATE AMINO TRANSFERASE 209 U/L (10-37); BLOOD UREA NITROGEN 54 MG/DL (7-18); BUN/CREATININE RATIO 25.6 (10.0-20.0); CALCIUM 7.3 MG/DL (8.5-10.1); CHLORIDE 111 MMOL/L (99-107); CREATININE 2.11 MG/DL (0.40-0.90); GLUCOSE 114 MG/DL (70-104); MAGNESIUM 1.7 MG/DL (1.5-2.4); PHOSPHORUS 3.1 MG/DL (2.3-4.5); POTASSIUM 4.3 MMOL/L (3.5-5.1); PRO BRAIN NATRIURETIC PEPTIDE 5447 PG/ML (0-450); SODIUM 141 MMOL/L (135-145); TOTAL CARBON DIOXIDE 22.8 MMOL/L (24-32); TOTAL PROTEIN 4.4 G/DL (6.4-8.2); VANCOMYCIN,RANDOM 7.4 ug/mL (20.0-30.0); eCRCL 17 ML/MIN; eGFR 23 ML/MIN
[2024-04-10 06:48] LABS: ELLIPTOCYTES FEW; PLATELET ESTIMATE DECREASED
[2024-04-10 07:12] LABS: ALANINE AMINOTRANSFERASE 1228 U/L (12-78)
[2024-04-10] MEDS ORDERED: midazolam 1 mg/ML 2ml injection ONE (10:17)
[2024-04-10] MEDS ORDERED: ceFAZolin 1000mg inj ONE (10:18)
[2024-04-10] MEDS ORDERED: LIDOcaine 1% W/epiNEPHrine 1:100,000 20ml vial ONE (10:18)
[2024-04-10] MEDS ORDERED: iohexol 350 MG/ML 50ML vial IV ONE (10:18)
[2024-04-10] MEDS ORDERED: fentaNYL/PF 50MCG/1 ML 2ML syringe ONE (10:18)
[2024-04-10 13:37] LABS: HEMATOCRIT 29.2 % (35.0-45.0); HEMOGLOBIN 10.1 g/dl (12.0-16.0); MEAN CORPUSCULAR HEMOGLOBIN 32.9 PG (27.0-31.0); MEAN CORPUSCULAR HGB CONC 34.5 g/dL (33.0-36.5); MEAN CORPUSCULAR VOLUME 95.5 FL (78-98); MEAN PLATELET VOLUME 10.5 FL (7.4-10.4); PLATELET COUNT 105 X10'3 (140-440); RED BLOOD COUNT 3.06 X10'6 (4.20-5.60); RED CELL DISTRIBUTION WIDTH 13.8 % (11.5-14.5); WHITE BLOOD COUNT 5.8 X10'3 (4.5-11.0)
[2024-04-10] MEDS ORDERED: HYDROcodone/acetaminophen 5mg/325mg tablet PO PRN (14:00)
[2024-04-10] MEDS: normal saline 1000ml 1,000 ML IV SCH (14:02)
[2024-04-10] MEDS: hydrALAZINE 20mg/ml inj. IV ONE (14:11)
[2024-04-10] MEDS: HYDROcodone/acetaminophen 10/325mg tab PO PRN (14:57)
[2024-04-10] MEDS ORDERED: normal saline 1000ml 1,000 ML IV ONE (17:30)
[2024-04-10 17:43] LABS: HEMATOCRIT 31.4 % (35.0-45.0); HEMOGLOBIN 10.6 g/dl (12.0-16.0); MEAN CORPUSCULAR HEMOGLOBIN 32.1 PG (27.0-31.0); MEAN CORPUSCULAR HGB CONC 33.9 g/dL (33.0-36.5); MEAN CORPUSCULAR VOLUME 94.7 FL (78-98); MEAN PLATELET VOLUME 10.4 FL (7.4-10.4); PLATELET COUNT 104 X10'3 (140-440); RED BLOOD COUNT 3.31 X10'6 (4.20-5.60); RED CELL DISTRIBUTION WIDTH 14.3 % (11.5-14.5); WHITE BLOOD COUNT 6.2 X10'3 (4.5-11.0)
[2024-04-10] MEDS: morphine 2 MG/ML inj. syringe IV PRN (17:57)
[2024-04-10] MEDS: normal saline 500ml IV soln 500 ML IV ONE (19:50)
[2024-04-10] MEDS: INSULIN LISPRO 100 UNIT/ML INSULN.PEN MULTI-DOSE SQ ONE (22:05)
[2024-04-11] VITALS (8 sets, daily range): BP systolic 120–161; BP diastolic 52–78; PULSE 71–87; RESP 10–18; TEMP 97.3–98.8; O2SAT 96–99
[2024-04-11 07:19] LABS: HEMOGLOBIN 10.3 g/dl (12.0-16.0); MEAN CORPUSCULAR HEMOGLOBIN 32.2 PG (27.0-31.0); MEAN CORPUSCULAR HGB CONC 33.3 g/dL (33.0-36.5); MEAN CORPUSCULAR VOLUME 96.7 FL (78-98); MEAN PLATELET VOLUME 10.1 FL (7.4-10.4); PLATELET COUNT 118 X10'3 (140-440); RED BLOOD COUNT 3.21 X10'6 (4.20-5.60); RED CELL DISTRIBUTION WIDTH 14.4 % (11.5-14.5); WHITE BLOOD COUNT 5.5 X10'3 (4.5-11.0)
[2024-04-11] MEDS: pantoprazole 40mg Tablet.DR PO SCH (07:20)
[2024-04-11 10:42] LABS: ALANINE AMINOTRANSFERASE 889 U/L (12-78); ALBUMIN 2.2 G/DL (3.4-5.0); ALBUMIN/GLOBULIN RATIO 0.7 (1.1-1.5); ALKALINE PHOSPHATASE 293 IU/L (46-116); ANION GAP 12 (8-16); ASPARTATE AMINO TRANSFERASE 116 U/L (10-37); BILIRUBIN,TOTAL 0.8 MG/DL (0.1-1.0); BLOOD UREA NITROGEN 55 MG/DL (7-18); BUN/CREATININE RATIO 25.5 (10.0-20.0); CHLORIDE 106 MMOL/L (99-107); CREATININE 2.16 MG/DL (0.40-0.90); POTASSIUM 4.6 MMOL/L (3.5-5.1); SODIUM 135 MMOL/L (135-145); TOTAL CARBON DIOXIDE 17.5 MMOL/L (24-32); TOTAL PROTEIN 5.5 G/DL (6.4-8.2); eCRCL 17 ML/MIN; eGFR 22 ML/MIN
[2024-04-11 11:00] LABS: GLUCOSE 421 MG/DL (70-104)
[2024-04-11] MEDS ORDERED: insulin Lispro (HumaLOG) vial - multi-dose SQ ONE (11:30)
[2024-04-11] MEDS: INSULIN LISPRO 100 UNIT/ML INSULN.PEN MULTI-DOSE SQ ONE ×2 (11:57→15:51)
[2024-04-11 12:11] LABS: HEMATOCRIT 37.1 % (35.0-45.0); MEAN CORPUSCULAR HEMOGLOBIN 32.5 PG (27.0-31.0); MEAN CORPUSCULAR HGB CONC 32.2 g/dL (33.0-36.5); MEAN CORPUSCULAR VOLUME 100.9 FL (78-98); MEAN PLATELET VOLUME 10.1 FL (7.4-10.4); PLATELET COUNT 146 X10'3 (140-440); RED BLOOD COUNT 3.68 X10'6 (4.20-5.60); RED CELL DISTRIBUTION WIDTH 15.1 % (11.5-14.5)
[2024-04-11] MEDS ORDERED: insulin Lispro (HumaLOG) vial - multi-dose SQ SCH (13:30)
[2024-04-11] MEDS ORDERED: potassium CL 20mEq in D5-1/2NS 1,000 ML IV PRN (17:35)
[2024-04-11] MEDS ORDERED: dextrose 50%-water 50ml dispensing syringe IV PRN (17:35)
[2024-04-11] MEDS ORDERED: sodium bicarbonate (8.4%) inj. 100 MEQ in dextrose 5% water 500ml 500 ML IV PRN (17:35)
[2024-04-11] MEDS ORDERED: sodium bicarbonate (8.4%) inj. 50 MEQ in dextrose 5% water 500ml 250 ML IV PRN (17:35)
[2024-04-11 18:24] LABS: HEMATOCRIT 32.8 % (35.0-45.0); HEMOGLOBIN 11.1 g/dl (12.0-16.0); MEAN CORPUSCULAR HEMOGLOBIN 32.5 PG (27.0-31.0); MEAN CORPUSCULAR HGB CONC 33.9 g/dL (33.0-36.5); MEAN PLATELET VOLUME 9.9 FL (7.4-10.4); PLATELET COUNT 137 X10'3 (140-440); RED BLOOD COUNT 3.42 X10'6 (4.20-5.60); RED CELL DISTRIBUTION WIDTH 13.8 % (11.5-14.5); WHITE BLOOD COUNT 6.7 X10'3 (4.5-11.0)
[2024-04-11] MEDS: Insulin Reg/NS 100units/100mL 100 ML IV SCH (19:46)
[2024-04-11] MEDS ORDERED: insulin glargine (Lantus) pen - multi-dose SQ SCH (21:00)
[2024-04-12] VITALS (7 sets, daily range): BP systolic 114–148; BP diastolic 56–91; PULSE 80–92; RESP 11–19; TEMP 97.3–98.2; O2SAT 94–98
[2024-04-12 00:12] LABS: HEMATOCRIT 29.5 % (35.0-45.0); HEMOGLOBIN 10.1 g/dl (12.0-16.0); MEAN CORPUSCULAR HEMOGLOBIN 32.2 PG (27.0-31.0); MEAN CORPUSCULAR VOLUME 94.7 FL (78-98); MEAN PLATELET VOLUME 9.6 FL (7.4-10.4); PLATELET COUNT 129 X10'3 (140-440); RED BLOOD COUNT 3.12 X10'6 (4.20-5.60); RED CELL DISTRIBUTION WIDTH 13.8 % (11.5-14.5); WHITE BLOOD COUNT 7.1 X10'3 (4.5-11.0)
[2024-04-12] MEDS: dextrose 5%-water 1,000 ML IV SCH (00:34)
[2024-04-12 01:09] LABS: ALANINE AMINOTRANSFERASE 525 U/L (12-78); ALBUMIN 1.8 G/DL (3.4-5.0); ALBUMIN/GLOBULIN RATIO 0.7 (1.1-1.5); ALKALINE PHOSPHATASE 238 IU/L (46-116); ANION GAP 4 (8-16); ASPARTATE AMINO TRANSFERASE 66 U/L (10-37); BILIRUBIN,TOTAL 0.5 MG/DL (0.1-1.0); BLOOD UREA NITROGEN 52 MG/DL (7-18); CALCIUM 7.7 MG/DL (8.5-10.1); CHLORIDE 111 MMOL/L (99-107); GLUCOSE 124 MG/DL (70-104); POTASSIUM 4.1 MMOL/L (3.5-5.1); SODIUM 139 MMOL/L (135-145); TOTAL CARBON DIOXIDE 23.7 MMOL/L (24-32); TOTAL PROTEIN 4.5 G/DL (6.4-8.2); eCRCL 18 ML/MIN; eGFR 24 ML/MIN
[2024-04-12 07:11] LABS: BASOPHILS % (AUTO) 0.5 % (0-1); EOSINOPHILS # (AUTO) 0.3 X10'3 (0-0.9); EOSINOPHILS % (AUTO) 4.5 % (0-6); HEMATOCRIT 29.9 % (35.0-45.0); HEMOGLOBIN 10.1 g/dl (12.0-16.0); LYMPHOCYTES # (AUTO) 1.1 X10'3 (1.1-4.8); LYMPHOCYTES % (AUTO) 15.1 % (21-51); MEAN CORPUSCULAR HGB CONC 33.9 g/dL (33.0-36.5); MEAN CORPUSCULAR VOLUME 94.4 FL (78-98); MEAN PLATELET VOLUME 9.5 FL (7.4-10.4); MONOCYTES # (AUTO) 0.7 X10'3 (0-0.9); MONOCYTES % (AUTO) 10.4 % (2-12); NEUTROPHILS # (AUTO) 4.9 X10'3 (1.8-7.7); NEUTROPHILS % (AUTO) 69.5 % (42-75); PLATELET COUNT 130 X10'3 (140-440); RED BLOOD COUNT 3.17 X10'6 (4.20-5.60); RED CELL DISTRIBUTION WIDTH 13.8 % (11.5-14.5)
[2024-04-12 07:27] LABS: ALANINE AMINOTRANSFERASE 462 U/L (12-78); ALBUMIN 1.7 G/DL (3.4-5.0); ALBUMIN/GLOBULIN RATIO 0.7 (1.1-1.5); ALKALINE PHOSPHATASE 200 IU/L (46-116); ANION GAP 6 (8-16); ASPARTATE AMINO TRANSFERASE 54 U/L (10-37); BILIRUBIN,TOTAL 0.7 MG/DL (0.1-1.0); BLOOD UREA NITROGEN 44 MG/DL (7-18); BUN/CREATININE RATIO 24.4 (10.0-20.0); CALCIUM 7.7 MG/DL (8.5-10.1); CHLORIDE 110 MMOL/L (99-107); GLUCOSE 120 MG/DL (70-104); POTASSIUM 3.9 MMOL/L (3.5-5.1); SODIUM 139 MMOL/L (135-145); TOTAL CARBON DIOXIDE 23.1 MMOL/L (24-32); TOTAL PROTEIN 4.3 G/DL (6.4-8.2); eCRCL 20 ML/MIN; eGFR 27 ML/MIN
[2024-04-12] MEDS: INSULIN LISPRO 100 UNIT/ML INSULN.PEN MULTI-DOSE SQ SCH (10:14)
[2024-04-13 02:00] VITALS: BP 120/73; PULSE 93; RESP 19; TEMP 97.2; O2SAT 94
[2024-04-13 06:49] LABS: BASOPHILS % (AUTO) 0.5 % (0-1); EOSINOPHILS # (AUTO) 0.3 X10'3 (0-0.9); HEMATOCRIT 28.1 % (35.0-45.0); HEMOGLOBIN 9.8 g/dl (12.0-16.0); LYMPHOCYTES # (AUTO) 1.2 X10'3 (1.1-4.8); LYMPHOCYTES % (AUTO) 16.9 % (21-51); MEAN CORPUSCULAR HGB CONC 34.7 g/dL (33.0-36.5); MEAN CORPUSCULAR VOLUME 95.2 FL (78-98); MEAN PLATELET VOLUME 9.5 FL (7.4-10.4); MONOCYTES # (AUTO) 0.6 X10'3 (0-0.9); MONOCYTES % (AUTO) 8.8 % (2-12); NEUTROPHILS # (AUTO) 4.8 X10'3 (1.8-7.7); NEUTROPHILS % (AUTO) 69.8 % (42-75); PLATELET COUNT 141 X10'3 (140-440); RED BLOOD COUNT 2.96 X10'6 (4.20-5.60); RED CELL DISTRIBUTION WIDTH 13.9 % (11.5-14.5); WHITE BLOOD COUNT 6.8 X10'3 (4.5-11.0)
[2024-04-13 06:52] LABS: ALANINE AMINOTRANSFERASE 328 U/L (12-78); ALBUMIN 1.7 G/DL (3.4-5.0); ALBUMIN/GLOBULIN RATIO 0.6 (1.1-1.5); ALKALINE PHOSPHATASE 209 IU/L (46-116); ANION GAP 6 (8-16); ASPARTATE AMINO TRANSFERASE 43 U/L (10-37); BILIRUBIN,TOTAL 0.5 MG/DL (0.1-1.0); BLOOD UREA NITROGEN 46 MG/DL (7-18); CALCIUM 7.6 MG/DL (8.5-10.1); CHLORIDE 112 MMOL/L (99-107); CREATININE 1.64 MG/DL (0.40-0.90); GLUCOSE 108 MG/DL (70-104); POTASSIUM 4.5 MMOL/L (3.5-5.1); SODIUM 143 MMOL/L (135-145); TOTAL CARBON DIOXIDE 24.9 MMOL/L (24-32); TOTAL PROTEIN 4.4 G/DL (6.4-8.2); eCRCL 22 ML/MIN; eGFR 30 ML/MIN
[2024-04-13 07:12] VITALS: BP 145/61; PULSE 85; RESP 16; TEMP 97.9; O2SAT 97
[2024-04-13] MEDS ORDERED: INSULIN LISPRO 100 UNIT/ML INSULN.PEN MULTI-DOSE SQ SCH (09:00)
[2024-04-13] MEDS: INSULIN LISPRO 100 UNIT/ML INSULN.PEN MULTI-DOSE SQ SCH (09:30)
[2024-04-13 10:45] VITALS: RESP 17; O2SAT 100
[2024-04-13 11:08] VITALS: BP 136/60; PULSE 51; RESP 17; TEMP 97.1; O2SAT 100
[2024-04-13] MEDS ORDERED: LANTUS SQ (12:47)
[2024-04-13] MEDS ORDERED: INSU100V3 SQ (12:47)
[2024-04-13 15:52] VITALS: BP 147/29; PULSE 93; RESP 16; TEMP 98.3; O2SAT 98
== END 2024-04-13 16:28 | disposition home health service (06) | DRG 242 ==
LOC: ER 22:11 → ED HOLD 04-06 03:37 → CICU 2S 04-06 05:44 → ORTHO 4S 04-07 13:20 → PCU 3S 04-07 16:10
PROVIDERS: ADMIT Internal Medicine Critical Care Medicine; ATTEND Internal Medicine Critical Care Medicine
PROC: 5A1223Z Performance of Cardiac Pacing, Continuous (ICD-10-PCS; 2024-04-06)
PROC: 05HY33Z Insertion of Infusion Device into Upper Vein, Percutaneous Approach (ICD-10-PCS; 2024-04-06)
PROC: B54MZZA Ultrasonography of Right Upper Extremity Veins, Guidance (ICD-10-PCS; 2024-04-06)
PROC: 30233N1 Transfusion of Nonautologous Red Blood Cells into Peripheral Vein, Percutaneous Approach (ICD-10-PCS; 2024-04-09)
PROC: 0JH606Z Insertion of Pacemaker, Dual Chamber into Chest Subcutaneous Tissue and Fascia, Open Approach (ICD-10-PCS; principal; 2024-04-10)
PROC: 02H63JZ Insertion of Pacemaker Lead into Right Atrium, Percutaneous Approach (ICD-10-PCS; 2024-04-10)
PROC: 02HK3JZ Insertion of Pacemaker Lead into Right Ventricle, Percutaneous Approach (ICD-10-PCS; 2024-04-10)
DX: I44.2 Atrioventricular block, complete (principal); E11.10 Type 2 diabetes mellitus with ketoacidosis without coma; N17.0 Acute kidney failure with tubular necrosis; I21.A1 Myocardial infarction type 2; I13.0 Hypertensive heart and chronic kidney disease with heart failure and stage 1 through stage 4 chronic kidney disease, or unspecified chronic kidney disease; I50.32 Chronic diastolic (congestive) heart failure; E11.22 Type 2 diabetes mellitus with diabetic chronic kidney disease; E86.0 Dehydration; I25.10 Atherosclerotic heart disease of native coronary artery without angina pectoris; E78.00 Pure hypercholesterolemia, unspecified; R74.01 Elevation of levels of liver transaminase levels; D69.6 Thrombocytopenia, unspecified; D64.9 Anemia, unspecified; N18.9 Chronic kidney disease, unspecified; E87.5 Hyperkalemia; Z79.82 Long term (current) use of aspirin; Z79.01 Long term (current) use of anticoagulants; Z79.899 Other long term (current) drug therapy
CPT/HCPCS: 33208; 36415; 36430; 36600; 71045; 74176; 76700; 80048; 80053; 80202; 81001; 82728; 82803; 82948; 83036; 83540; 83550; 83605; 83690; 83735; 83880; 84100; 84132; 84145; 84443; 84466; 84484; 85007; 85008; 85018; 85025; 85027; 85610; 85651; 85730; 86038; 86803; 86885; 86900; 86901; 86920; 87040; 87081; 87088; 87340; 87522; 93005; 93306; 94640; 97110; 97116; 97161; 97530; 97535; 99152; 99153; 99291; 99292; A4565; A6213; A6250; A6258; A6402; A6449; C1751; C1758; C1785; C1898; G0378; J0360; J0461; J0690; J1265; J1644; J1815; J2250; J2270; J2470; J2543; J3010; J3372; J3480; J3490; J7030; J7040; J7070; J7120; P9016; Q9967

== ENCOUNTER 2024-04-22 09:33 | Outpatient (CLI) | payer MEDICARE, OTHER ==
[2024-04-22 10:32] LABS: APTT 24 SECONDS (22-32); INR 1.2 INR; PROTHROMBIN TIME 12.4 SECONDS (9.0-12.0)
[2024-04-22 10:34] LABS: BASOPHILS # (AUTO) 0.1 X10'3 (0-0.2); BASOPHILS % (AUTO) 1.9 % (0-1); EOSINOPHILS # (AUTO) 0.2 X10'3 (0-0.9); EOSINOPHILS % (AUTO) 4.2 % (0-6); HEMATOCRIT 26.6 % (35.0-45.0); LYMPHOCYTES # (AUTO) 0.6 X10'3 (1.1-4.8); LYMPHOCYTES % (AUTO) 16.8 % (21-51); MEAN CORPUSCULAR HEMOGLOBIN 32.2 PG (27.0-31.0); MEAN CORPUSCULAR HGB CONC 33.9 g/dL (33.0-36.5); MEAN CORPUSCULAR VOLUME 95.2 FL (78-98); MEAN PLATELET VOLUME 8.9 FL (7.4-10.4); MONOCYTES # (AUTO) 0.3 X10'3 (0-0.9); MONOCYTES % (AUTO) 8.4 % (2-12); NEUTROPHILS # (AUTO) 2.4 X10'3 (1.8-7.7); NEUTROPHILS % (AUTO) 68.7 % (42-75); PLATELET COUNT 277 X10'3 (140-440); RED BLOOD COUNT 2.79 X10'6 (4.20-5.60); RED CELL DISTRIBUTION WIDTH 14.4 % (11.5-14.5); WHITE BLOOD COUNT 3.6 X10'3 (4.5-11.0)
[2024-04-22 10:40] LABS: ALANINE AMINOTRANSFERASE 97 U/L (12-78); ALBUMIN 2.7 G/DL (3.4-5.0); ALBUMIN/GLOBULIN RATIO 0.9 (1.1-1.5); ALKALINE PHOSPHATASE 238 IU/L (46-116); ANION GAP 6 (8-16); ASPARTATE AMINO TRANSFERASE 22 U/L (10-37); BILIRUBIN,TOTAL 0.9 MG/DL (0.1-1.0); BLOOD UREA NITROGEN 13 MG/DL (7-18); BUN/CREATININE RATIO 9.8 (10.0-20.0); CALCIUM 8.8 MG/DL (8.5-10.1); CHLORIDE 104 MMOL/L (99-107); CREATININE 1.33 MG/DL (0.40-0.90); GLUCOSE 334 MG/DL (70-104); POTASSIUM 4.4 MMOL/L (3.5-5.1); PRO BRAIN NATRIURETIC PEPTIDE 6053 PG/ML (0-450); SODIUM 140 MMOL/L (135-145); TOTAL CARBON DIOXIDE 30.1 MMOL/L (24-32); TOTAL PROTEIN 5.8 G/DL (6.4-8.2); eGFR 38 ML/MIN
== END 2024-04-22 23:59 | disposition home or self-care (01) ==
LOC: VAS 09:33 → RAD 23:59
PROVIDERS: ATTEND Internal Medicine Cardiovascular Disease
DX: J90 Pleural effusion, not elsewhere classified (principal); I65.29 Occlusion and stenosis of unspecified carotid artery; I70.0 Atherosclerosis of aorta; J98.11 Atelectasis; I35.0 Nonrheumatic aortic (valve) stenosis; R06.02 Shortness of breath
CPT/HCPCS: 36415; 71046; 71275; 74174; 75572; 80053; 83880; 85025; 85610; 85730; 93880; Q9967

== ENCOUNTER 2024-05-26 09:31 | Outpatient (CLI) | payer MEDICARE, OTHER ==
[~2024-05-26] VITALS: Ht 162.6 cm; Wt 51.0 kg
[~2024-05-26 09:31] MED LIST changes: +IODIXANOL 320 MG/ML INFUS..BTL 100ML IV ONE
[2024-05-26 15:54] VITALS: BP 148/59; PULSE 82; RESP 18; TEMP 97.7; O2SAT 100
== END 2024-05-26 23:59 | disposition home or self-care (01) ==
LOC: TAVR 09:31
PROVIDERS: ATTEND Internal Medicine Cardiovascular Disease
DX: I35.0 Nonrheumatic aortic (valve) stenosis (principal); R06.02 Shortness of breath; I65.29 Occlusion and stenosis of unspecified carotid artery
CPT/HCPCS: Q9967

== ENCOUNTER 2025-05-02 16:50 | Emergency (ER) | payer MEDICARE, OTHER ==
[~2025-05-02] VITALS: Ht 162.6 cm; Wt 52.3 kg
[~2025-05-02 16:50] MED LIST changes: -ASPI-611 PO; +ASPI81TA52 PO; +CLOP-32 PO; -CLOP75TA34 PO; +INSU100I8 SQ; -INSU100V3 SQ; -IODIXANOL 320 MG/ML INFUS..BTL 100ML IV ONE; -LANTUS SQ; +LANTUS SUBCUT
[2025-05-02 17:40] LABS: MEAN PLATELET VOLUME 8.6 FL (7.4-10.4); RED CELL DISTRIBUTION WIDTH 12.5 % (11.5-14.5)
[2025-05-02 17:58] LABS: CREATININE 1.57 MG/DL (0.40-0.90); TOTAL CARBON DIOXIDE 26.1 MMOL/L (24-32); eCRCL 23 ML/MIN; eGFR 32 ML/MIN
[2025-05-02 18:32] LABS: UA COLLECTION TYPE CLN CATCH MIDSTREAM
[2025-05-02 18:36] LABS: SQUAMOUS EPITHELIAL CELL,UR FEW /LPF (FEW)
--- NOTE | 2025-05-02 18:36 | ELECTROCARDIOGRAPH REPORT ---
[facility] Test Date: 2025-05-02 Test Time: 18:35:03 Pat Name: CONRAD SANTIZO Department: [facility] Patient ID: [id number] Room: Gender: F Assistant Wrestling Coach: : 1945 Requested By: SORAIDA RIKCS Order Number: [id number] Reading MD: Dr. Tyler Gonzalez Measurements Intervals [place] Rate: 65 P: -43 NM: 270 QRS: -84 QRSD: 139 T: 85 QT: 464 QTc: 483 Interpretive Statements A-V dual-paced rhythm with some inhibition No further analysis attempted due to paced rhythm Baseline wander in lead(s) V1 Electronically Signed On 05-03-2025 21:13:[address] Tyler Gonzalez Please click the below link to view image of tracing.
--- NOTE | 2025-05-02 19:11 | Physician Documentation ---
History of Present Illness ~ Chief Complaint: Flank Pain Stated Complaint: LOWER BACK PAIN Time Seen by MD: 19:03 OK to notify your PCP?: Yes Primary Medical Doctor: Dr. Justice Source: patient Mode of Arrival: Ambulatory Exam Limitations: no limitations HPI 79 year old female patient presents to the clinic with complaints of lower right back pain that is like crazy excruciating she describes it as a pinching sensation. This has been ongoing since last Thursday. She saw her PCP on 04/28 her diagnosed her with a UTI and she has been on antibiotics. She states that when she woke up today the pain was so bad she could barely walk. 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 Patient denies any other associated symptoms. Patient denies any other alleviating or exacerbating factors at this time. Medication Reconciliation Allergies: Coded Allergies: No Known Allergies (Unverified , 05/02/25) Scheduled Aspirin (Aspirin EC), 2 TAB PO DAILY, (Reported) Atorvastatin Calcium* (Lipitor*), 1 TAB PO HS, (Reported) Clopidogrel Bisulfate (Plavix), 1 TAB PO QAM, (Reported) Insulin Glargine,Hum.rec.anlog* (Lantus*), 15-20 UNITS SUBCUT HS, (Reported) Insulin Lispro (Humalog), 8-15 UNITS SQ TID, (Reported) Lidocaine (Lidoderm), 1 PATCH TOP DAILY Scheduled PRN Acetaminophen (Tylenol Extra Strength), 2 TAB PO Q6H PRN PRN for pain or fever Past Medical History Past Medical History: Coronary Artery Disease, High Cholesterol, Diabetes Past Surgical History: other Alcohol Use: None Drug Use: none Lives with: Family Lives In: Home Occupation: employed Review of Systems All Other Systems at this time: Reviewed and Negative ROS As stated above in the HPI, otherwise all systems are reviewed and negative. Physical Exam Vital Signs: RN Vital Signs have been reviewed: Yes, Temperature: 98.4, Source: Oral, Heart Rate: 70, Respiratory Rate: 14, BP: 138/30, Pulse Oximetry: 96, Weight: 52.300 Oxygen Flow Rate: 0 Pulse Oximetry Reflects: adequate oxygenation Physical Exam General: Patient is awake, alert, oriented x4 in no acute distress. Head: Normocephalic and atraumatic. Eyes: Conjunctival normal. EOMI. PERRL. ENT: Mucous membranes moist. Neck: Supple, trachea is midline. Back: Tenderness to palpation over right SI joint. Chest: Clear to auscultation bilaterally without rales, rhonchi, or wheezes. There is no accessory muscle use or retractions. Cardiac: RRR without murmurs, gallops, or rubs. Abd: Soft, nondistended, nontender, with normoactive bowel sounds. No guarding, rebound, or rigidity. Extremities: Normal strength. Normal range of motion. No deformities or edema. Back: No midline spinal or CVA tenderness. Skin: Warm and dry with no significant rash appreciated. Neuro: Cranial nerves II-XII grossly intact. No focal neuro deficits. Progress Results/Orders Results/Orders Completed Orders - MCKAY LIZARRAGA MD Normal Saline 1000ml (0.9% Sodium Chlori (05/02/25 19:20) Sodium Chloride Tablet (Sodium Chloride (05/02/25 19:20) Acetaminophen 1,000mg/100ml Iv (Ofirmev (05/02/25 19:20) Ondansetron Disint. Tablet (Zofran Odt T (05/02/25 19:20) Lidocaine 5% Patch (Lidoderm 5% Patch) (05/02/25 19:20) Insulin Regular, Human (Humulin R 10 Uni (05/02/25 19:20) Medications Received in ER Medications (Trade) Dose Ordered Sig/Solo Route PRN Reason Start Time Stop Time Status Last Admin Dose Admin Sodium Chloride 1,000 ml @ 1,000 mls/hr ONCE ONCE IV 05/02/25 19:20 05/02/25 20:19 DC 05/02/25 19:35 1,000 MLS/HR (sodium chloride tablet) 1 gm ONCE ONCE PO 05/02/25 19:20 05/02/25 19:21 DC 05/02/25 21:02 1 GM Acetaminophen 100 ml @ 400 mls/hr ONCE ONCE IV 05/02/25 19:20 05/02/25 19:34 DC 05/02/25 21:02 400 MLS/HR (Zofran ODT tablet) 4 mg ONCE ONCE PO 05/02/25 19:20 05/02/25 19:21 DC 05/02/25 21:02 4 MG (Lidoderm 5% Patch) 1 patch ONCE ONCE TP 05/02/25 19:20 05/02/25 19:21 DC 05/02/25 20:59 1 PATCH (HumuLIN R 10 units per 0.1 ML syringe) 5 units ONCE ONCE IV 05/02/25 19:20 05/02/25 19:21 DC 05/02/25 21:09 5 UNITS Vital Signs 05/02/25 05/02/25 05/02/25 05/02/25 17:00 17:52 18:10 21:53 Temp 98.3 98.4 Pulse 79 70 Resp 18 12 14 B/P (MAP) 161/39 138/30 (66) Pulse Ox 95 96 O2 Flow Rate 0 05/02/25 05/02/25 21:53 22:27 Temp 98.4 98.4 Pulse 60 60 Resp 14 14 B/P (MAP) 144/65 (91) 144/65 Pulse Ox 93 93 O2 Flow Rate 0 Laboratory Tests Test 05/02/25 17:05 05/02/25 17:22 05/02/25 21:06 Urine Specimen Description Cln catch midstream Urine Color [place] Urine Clarity Clear Urine pH Urine Specific [place] Urine Protein Urine Glucose (UA) Urine Ketones Urine Occult Blood Urine Nitrite Urine Bilirubin Urine Urobilinogen Urine Leukocyte Esterase Urine RBC 0-2 Urine WBC 0-4 Urine Squamous Epithelial Cells Few Urine Bacteria None seen Urine Culture Indicated Not ind Volume Urine Centrifuged 10 ml Urine Comment See note White Blood Count 3.5 L Red Blood Count 3.18 L Hemoglobin 10.1 L Hematocrit 30.0 L Mean Corpuscular Volume 94.4 Mean Corpuscular Hemoglobin 31.8 H Mean Corpuscular Hemoglobin Concent 33.7 Red Cell Distribution Width 12.5 Platelet Count 216 Mean Platelet Volume 8.6 Neutrophils (%) (Auto) 68.1 Lymphocytes (%) (Auto) 21.6 Monocytes (%) (Auto) 6.2 Eosinophils (%) (Auto) 2.9 Basophils (%) (Auto) 1.2 H Neutrophils # (Auto) 2.4 Lymphocytes # (Auto) 0.8 L Monocytes # (Auto) 0.2 Eosinophils # (Auto) 0.1 Basophils # (Auto) 0.0 CBC Comment Sodium Level 125 L Potassium Level 5.5 H Chloride Level 91 L Carbon Dioxide Level 26.1 Anion Gap 8 Blood Urea Nitrogen 19 H Creatinine 1.57 H Estimated GFR/1.73 m2 32 BUN/Creatinine Ratio 12.1 Glucose Level 450 *H Calcium Level 8.7 Total Bilirubin 0.6 Aspartate Amino Transf (AST/SGOT) 18 Alanine Aminotransferase (ALT/SGPT) 22 Alkaline Phosphatase 203 H Total Protein 6.4 Albumin 3.6 Globulin 2.8 Albumin/Globulin Ratio 1.3 Lipase 45 Chemistry Comments Glucometer 379 H EKG/XRAY/CT/US/VASC/MRI EKG : Intepreting Monitor?: No Additional Comment 1835: AV paced rhythm at 65, no further analysis secondary to paced rhythm. Medical Decision Making Findings Patient presents to the emergency room with hyperglycemia and back pain as per HPI. Differentials include but are not limited to pyelonephritis, aortic pathology, lumbago, kidney stone therefore emergent labs ordered. Labs show hyperglycemia but no DKA and he had not feel patient is suffering from hyperosmotic state. Her showed that has I would likely leading to her dehydration as she has received IV fluids. Mildly decreased kidney function which should improve with hydration. Electrolyte disturbances noted which will improve with normal saline and salt tablet. I have instructed patient to incre ase her salt intake and to follow up with her doctor. Mildly elevated potassium which that has likely a function of her mildly decreased kidney function and he had not feel she requires admission for this. No evidence of infection. increase your salt intake Diff Dx GI Bleed:Consideration: Include: AE fistula, Angiodysplasia, Bleeding diathesis, Blood loss anemia, Carcinoma, Diverticulosis, Diverticulitis, Esophageal varicies, Esophagitis, Gastritis, Gastroenteritis, Inflammatory BD, Graciela-Black syndrome, Meckel's diverticulum, PUD, Other Diff Dx Pain:Considerations: Include: AAA, -Complete, - Incomplete, -Inevitable, -Missed, -Threatened, Abruptio placentae, Angina/ME, Aortic dissection, Appendicitis, Bowel obstruction, Cholangitis, Cholecystitis, Cholelithasis, Constipation, Diverticular disease, Dysmenorrhea, Ectopic , Esophageal rupture, Esophagitis, Gastritis/PUD, Gastroenteritis, GI hemorrhage, Hernia, Hepatitis, Inflammatory BD, Ischemic bowel, Mass, Ovarian cyst/torsion, Pancreatitis, PID, Porphyria, Trauma, intraabdominal, Urinary obstruction, Urinary tract infection, Urolithiasis, Other Diff Dx N/V/D:Considerations: Include: Appendicitis, Bowel obstruction, Dehydration, DKA, Diarrhea - bacterial, Diarrhea - parasitic, Diarrhea - viral, Diverticulitis, Diverticulosis, Drug toxicity, Electrolyte imbalance, Food poisoning, Gastroenteritis, GE reflux, GI bleed, Hepatitis, Hernia, Hypovolemia, Hypotension, Inflammatory BD, Impaction, Malnutrition, Pancreatitis, , PUD, Renal failure, Urolithiasis, Urinary obstruction, UTI, Other Diff Dx Rectal:Considerations: Include: Fissure, Fistula, Foreign body, Impaction, Perirectal abscess, Rectal prolapse, Subcutaneous abscess, Thrombosed hemorrhoid, Ulcer, UTI, Other Departure Time of Disposition: 20:08 Disposition: 01 HOME / SELF CARE / HOMELESS Impression: Primary Impression: Lumbago Qualified Codes: M54.50 - Low back pain, unspecified Condition: Stable Discharge Instructions: Acute Back Pain, Adult Additional Instructions: Your urine today that has reassuring which means the antibiotic that you using that has working. Finish all your antibiotics. Labs reassuring as well but you do show some dehydration. I do not believe the pain in your back that has related to your kidneys or urine but rather musculoskeletal pain. as I am able to palpate right upon area of concern this is very reassuring from a medical standpoint however it is painful. Avoid bedrest. Tylenol for pain. You were dehydrated. You have received IV fluids. This is likely secondary to your very high sugars. I understand you are brittle diabetic but double your efforts to stay hydrated and keep your sugars under control. Follow up with your doctor for re-evaluation of your electrolytes and possible referral to physical therapy. Referrals: NO PRIMARY CARE PROVIDER (PCP) Prescriptions Lidocaine (Lidoderm) 5 % Adh..patch 1 PATCH TOP DAILY for 30 Days, #30 PATCH 0 Refills may wear up to 12 hours Prov: MCKAY LIZARRAGA MD 05/02/25 Acetaminophen (Tylenol Extra Strength) 500 Mg Tablet 2 TAB PO Q6H PRN PRN for pain or fever for 3 Days, #30 TAB Prov: MCKAY LIZARRAGA MD 05/02/25 Education Educated: Patient Educated regarding: diagnosis, treatment, need for follow up Signature Scribe Signature: Scribed for Mckay Lizarraga MD by Flor Ku . 05/02/25 19:59 Attestation: The note accurately reflects work and decisions made by me.Mckay Lizarraga MD 05/02/25 22:11 MCKAY LIZARRAGA MD May 02, 2025 19:11 FLOR LU May 02, 2025 20:03
[2025-05-02] MEDS: normal saline 1000ml 1,000 ML IV ONE (19:35)
[2025-05-02] MEDS ORDERED: ACET-1025 PO (19:59)
[2025-05-02] MEDS ORDERED: LIDO-52 TOP (20:09)
[2025-05-02] MEDS: acetaminophen 1,000mg/100ml IV 100 ML IV ONE (21:02)
[2025-05-02] MEDS: ondansetron 4mg rapidly disintigrating tab PO ONE (21:02)
[2025-05-02] MEDS: insulin regular, human 10 units/0.1 ml syringe IV ONE (21:09)
[2025-05-02 22:27] VITALS: BP 144/65; PULSE 60; RESP 14; TEMP 98.4; O2SAT 93
== END 2025-05-02 22:28 | disposition home or self-care (01) ==
LOC: ER 16:51
DX: M54.50 Low back pain, unspecified (principal); I25.10 Atherosclerotic heart disease of native coronary artery without angina pectoris; E78.00 Pure hypercholesterolemia, unspecified; E11.9 Type 2 diabetes mellitus without complications; Z95.0 Presence of cardiac pacemaker; Z79.82 Long term (current) use of aspirin; Z79.4 Long term (current) use of insulin
CPT/HCPCS: 36415; 80053; 81001; 82948; 83690; 85025; 93005; 96361; 96374; 96375; 99284; J0131; J1815; J7030